=== PATIENT | female | born 1965 | race Caucasian/White ===

== ENCOUNTER 2024-09-10 12:43 | Outpatient (CLI) | payer OTHER ==
[~2024-09-10 12:43] MED LIST: LEVSIN/SL0.125 MG SL; ZANTAC300 MG PO
== END 2024-09-10 13:00 | disposition home or self-care (01) ==
LOC: SONOGRAMA 12:43
PROVIDERS: ATTEND Obstetrics & Gynecology
DX: I11.9 Hypertensive heart disease without heart failure (principal); M54.2 Cervicalgia; M54.12 Radiculopathy, cervical region; N60.11 Diffuse cystic mastopathy of right breast; N60.12 Diffuse cystic mastopathy of left breast

== ENCOUNTER 2024-10-10 08:04 | Outpatient (CLI) | payer OTHER | END 2024-10-10 08:05 | disposition home or self-care (01) | LOC: NUCLEAR 08:04 | PROVIDERS: ATTEND Internal Medicine | DX: I87.2 Venous insufficiency (chronic) (peripheral) (principal) ==